=== PATIENT | male | born 2000 | race Caucasian/White ===

== ENCOUNTER 2023-06-02 07:22 | Emergency (ER) | payer OTHER, SELFPAY ==
[2023-06-02 07:24] VITALS: BP 120/79
[2023-06-02 07:25] VITALS: BMI 18.3
[2023-06-02] MEDS: ZOFRAN 4 MG IV (07:41)
[2023-06-02] MEDS: NSS 1000 IV (07:42)
[2023-06-02 07:51] LABS: % Basophils 0.4 % (0-2); % Immature Granulocytes 0.4 % (0-0.5); % Lymphocytes 8.3 % (20.5-51.1); % Monocytes 6.7 % (1.7-9.3); % Neutrophils 84.2 % (42.2-75.2); Absolute Lymphocytes 0.9 10^3/uL (1.2-3.4); Absolute Monocytes 0.7 10^3/uL (0.1-0.6); Absolute Neutrophils 8.7 10^3/uL (1.4-6.5); Hematocrit 36.8 % (39.0-52.0); Hemoglobin 13.6 g/dL (13.0-18.0); Mean Corpuscular Hgb 29.4 pg (27.0-31.0); Mean Corpuscular Volume 79.5 fL (80.0-94.0); Nucleated Red Blood Cells % 0 % (-); Platelet Count 264 10^3/uL (130-400); Red Blood Cell Count 4.63 10^6/uL (4.70-6.10); Red Cell Dist. Width 11.9 % (11.5-14.5); White Blood Cell Count 10.3 10^3/uL (4.8-10.8)
[2023-06-02 08:00] VITALS: BP 115/70
[2023-06-02 08:03] LABS: ALT (SGPT) 122 U/L (0-50); AST (SGOT) 46 U/L (17-59); Albumin 5.2 g/dl (3.5-5.0); Alkaline Phosphatase 66 U/L (38-126); Blood Urea Nitrogen 20 mg/dl (9-20); Carbon Dioxide 20 mmol/L (22-30); Chloride 104 mmol/L (98-107); Estimated Creatinine Clearance 116 ml/min; Glucose 102 mg/dl (70-99); Lipase 32 U/L (23-300); Potassium 3.7 mmol/L (3.5-5.1); Sodium 138 mmol/L (135-145); Total Bilirubin 1.6 mg/dl (0.2-1.3); Total Protein 7.9 g/dl (6.3-8.2); eGFR > 60.00
--- NOTE | 2023-06-02 08:18 | ED.GENMED ---
History of Present Illness
General
Chief Complaint: Abdominal Symptoms
Source: patient
Exam Limitations: none
Time Seen by Provider: 06/02/23 07:34
Nursing documentation reviewed up to this point in time: agreed with
History of Present Illness
History of Present Illness:
22-year-old male states at 3 AM he awakened with palpitations, he started vomiting and diarrhea which he has had 3 episodes of each, last emesis was an hour ago, last diarrhea was 1.5 hours ago (little squirts, non bloody). He admits to having a
history of panic attacks and anxiety and he typically takes Ativan when he feels this way but he is out of the Ativan he also states typically his anxiety attacks are associated with 1 episode of vomiting only and no diarrhea. He said he [place]
salad [place] 730 last night.
Denies fever/chills. Denies CP, SOB, Abdominal pain.
Past History
Past History
ED Past Medical History: Psychiatric (Takes Wellbutrin and Zoloft, Hydroxyzine, Ativan prn but ran out)
ED Past Surgical History: None
Social History
Tobacco: Non-smoker
Alcohol: None
Personal: Single
Living: with family
Employment: Employed (works on farm)
Review of Systems
Review of Systems
Allergies reviewed?: Yes
All Other Systems: ROS reviewed and negative except as documented in HPI and ROS
Constitutional: Denies fever or fatigue
Respiratory: Denies trouble breathing
Cardiac: Reports palpitations; Denies chest pain
ABD/GI: Denies abdominal pain, vomiting or diarrhea
Musculoskeletal: Reports no symptoms
Skin: Reports no symptoms
Neurological: Reports no symptoms
Psychiatric: Reports anxiety
Phy Exam
Physical Exam
Physical Exam:
GENERAL: No acute distress. A&Ox3.
CONSTITUTIONAL: Afebrile.
EYES:clear, conjunctivae normal
ENMT: moist mucus membranes, Pharynx nl
RESPIRATORY: Regular respirations, nonlabored, lungs clear.
CARDIOVASCULAR: Regular rate and rhythm, no murmurs, no rubs.
GI: Soft, nontender, normal BS
MUSCULOSKELETAL: Moves with ease. Well perfused.
SKIN: Warm, dry, pink
PSYCH: Normal mood and affect. Well kept, interactive and appropriate
NEUROLOGIC: Awake, alert and oriented. No focal neurological deficits
Course
Orders/Labs/Results
Orders:
Orders
06/02/23 07:23
Electrocardiogram (*1) Urgent
Reason for Study: Bradycardia / Tachycardia
06/02/23 07:24
EKG- Treatment ONCE
06/02/23 07:34
CMP [Comprehensive Metabolic Panel] Urgent
Complete Blood Count/With Diff Urgent
Lipase Urgent
Ondansetron Injectable [Zofran] 4 mg IV NOW STA
06/02/23 07:41
0.9% Sodium Chloride 1000 ml [Nss] 1,000 ml IV BOLUS
Abnormal Lab Results
06/02/23
07:34
RBC 4.63 L 10^6/uL
(4.70-6.10)
Hct 36.8 L %
(39.0-52.0)
MCV 79.5 L fL
(80.0-94.0)
Absolute Neuts (auto) 8.7 H 10^3/uL
(1.4-6.5)
Absolute Lymphs (auto) 0.9 L 10^3/uL
(1.2-3.4)
Absolute Monos (auto) 0.7 H 10^3/uL
(0.1-0.6)
Neutrophils % 84.2 H %
(42.2-75.2)
Lymphocytes % 8.3 L %
(20.5-51.1)
Carbon Dioxide 20 L mmol/L
(22-30)
Glucose 102 H mg/dl
(70-99)
Total Bilirubin 1.6 H mg/dl
(0.2-1.3)
ALT 122 H U/L
(0-50)
Albumin 5.2 H g/dl
(3.5-5.0)
06/02/23 07:34
06/02/23 07:34
Vital Signs
Initial and Last Documented VS:
Initial Vital Signs
Temp Pulse Resp BP Pulse Ox
98.3 F 112 20 120/79 98
06/02/23 07:24 06/02/23 07:24 06/02/23 07:24 06/02/23 07:24 06/02/23 07:24
Last Documented Vital Signs
Temp Pulse Resp BP Pulse Ox
98.3 F 88 20 107/60 98
06/02/23 07:24 06/02/23 09:45 06/02/23 07:24 06/02/23 09:54 06/02/23 09:54
MDM/Problems Addressed
Differential Diagnosis Includes:
Gastroenteritis, anxiety
MDM/Problems Addressed:
22-year-old male states at 3 AM he awakened with palpitations, he started vomiting and diarrhea which he has had 3 episodes of each, last emesis was an hour ago, last diarrhea was 1.5 hours ago (little squirts, non bloody). He admits to having a
history of panic attacks and anxiety and he typically takes Ativan when he feels this way but he is out of the Ativan he also states typically his anxiety attacks are associated with 1 episode of vomiting only and no diarrhea. He said he ate a
salad [place] a [place] 730 last night.
Denies fever/chills. Denies CP, SOB, Abdominal pain.
Afebrile, NAD
EKG: Sinus tachycardia
06/02/2023 0821 AM
CBC with no clinically significant abnormality
CMP mild respiratory alkalosis, pt was hyperventilating on arrival
06/02/2023 0858 AM
Patient with acute onset of nausea, vomiting, and diarrhea, no fever. Suspect self-limited viral syndrome such as norovirus.� Discussed supportive care and return parameters.� He has no reproducible abdominal tenderness thus there is no indication
for abdominal imaging at this time
After liter of IV fluids, IV Zofran patient states he is feeling much better. No vomiting or diarrhea since arrival
He is able to tolerate p.o. fluids
He states he is comfortable going home
Prescription for Zofran sent to his pharmacy
*Pulse Oximetry
Patient hypoxic: no
*EKG
EKG Intrepretation Date: 06/02/23
Interpretation: abnormal
Rate: tachycardiac
Rhythm: sinus
Interval: normal interval
QRS Pattern: normal QRS
Ischemia: no ischemia
*Critical Care Note
Total Time (30-74mins, 75-104mins- exclusive of procedures): Not Applicable
ED Attending Note
-
Portions of this chart may have been created with voice recognition software.� Occasional wrong word or��sound alike� substitutions may have occurred due to the inherent limitations of voice recognition software.
Discharge Plan
Departure
Patient Disposition: Home (Routine Discharge)
Date of Disposition: 06/02/23
Time of Disposition: 09:14
Patient with high blood pressure during this ER visit?: No
Condition: Good
Discharge Problem:
Gastroenteritis
Instructions: Diarrhea in adolescents and adults, Nausea and Vomiting, Adult (DC)
Prescriptions:
New
ondansetron 4 mg tablet,disintegrating
4 mg PO Q8H PRN (Reason: nausea and vomiting) 5 Days Qty: 10 0RF
No Action
No Current Medications
ondansetron 4 mg tablet,disintegrating
4 mg PO Q8H PRN (Reason: nausea and vomiting) 4 Days Qty: 10 0RF
Referrals:
Ankita Franco PA-C [Family Provider] - As needed
Activity Restrictions/Additional Instructions:
As we discussed, I sent a prescription to your pharmacy for Zofran to use as needed for nausea and vomiting.
Interventions
Interventions:
*Risk Screen - Suicide Last Done: 06/02/23 07:27
*General Assessment Last Done: 06/02/23 07:27
*Neglect/Abuse Screening Last Done: 06/02/23 10:10
ED- Fall Risk Assessment Last Done: 06/02/23 07:27
*ED COVID-19 Vaccine History Last Done: 06/02/23 07:27
*Nursing Disposition Last Done: 06/02/23 10:10
DJ-Fgboch-Lffdhpjhfi Assessment Last Done: 06/02/23 07:27
Discharge Date and Time
Discharge Date/Time: 06/02/23 10:10
[2023-06-02 09:00] VITALS: BP 108/68
[2023-06-02 09:54] VITALS: BP 107/60
== END 2023-06-02 10:10 | disposition home or self-care (01) ==
LOC: EMR 07:22
PROVIDERS: EMERGENCY PHYSICIAN Emergency Medicine; FAMILY PHYSICIAN Student in an Organized Health Care Education/Training Program; REFERRING PHYSICIAN Internal Medicine
DX: K52.9 Noninfective gastroenteritis and colitis, unspecified (principal)
CPT/HCPCS: 99284; 96374; 96361; 80053; 83690; 85025; 93005

== ENCOUNTER → 2023-08-07 09:00 | Outpatient (REF) | payer OTHER, SELFPAY | LOC: RCS 09:00 | PROVIDERS: ATTENDING PHYSICIAN Internal Medicine Cardiovascular Disease; FAMILY PHYSICIAN Student in an Organized Health Care Education/Training Program | DX: R00.2 Palpitations (principal); R06.02 Shortness of breath | CPT/HCPCS: 93306 ==

== ENCOUNTER 2024-06-14 06:39 | Emergency (ER) | payer OTHER, SELFPAY ==
[2024-06-14 06:49] VITALS: BP 123/84
--- NOTE | 2024-06-14 06:58 | ED.GENMED ---
History of Present Illness
General
Chief Complaint: Withdrawal Symptoms
Time Seen by Provider: 06/14/24 06:58
History of Present Illness
History of Present Illness:
TIME OF INITIAL ENCOUNTER: 7:10 AM
HPI: The patient has a history of anxiety/depression. He recently stopped Effexor and Wellbutrin. He also had been using marijuana daily up until 3 days ago. He spoke to his psychiatrist yesterday but was not honest with him about stopping the
Effexor and Wellbutrin. He has been having nausea, vomiting, and diarrhea and feels dehydrated. His psychiatrist switched him from Ativan to Xanax. He last took Xanax at 9 PM last night. He says he takes benzos about 4 times per month. He does
not necessarily feel jittery or anxious currently.
EXAM:
GENERAL: Well appearing in no distress, but appears somewhat generally weak
HEENT: Slightly dry oral mucosa
CARDIOVASCULAR: No murmurs, tachycardic heart rate, regular rhythm, No chest wall tenderness
PULMONARY: No respiratory distress, breath sounds are clear and equal
ABDOMEN: Soft with no peritoneal signs, no tenderness
NEUROLOGIC: Excellent strength all extremities, no coordination deficits
PSYCHIATRIC: Appropriate mental status, normal insight and judgement
EXTREMITIES: Nontender, no edema, moves all extremities equally
SKIN: No rash, no lesions
NUMBER AND COMPLEXITY OF PROBLEMS ADDRESSED AT THE ENCOUNTER
� Chronic conditions affecting care: Anxiety/depression
� Acute Exacerbation and/or Progression of Chronic Illness: This is an acute problem
� Differential Diagnosis includes: Medication withdrawal, anxiety, cannabinoid hyperemesis syndrome, medication side effect, dehydration, LETI
AMOUNT AND/OR COMPLEXITY OF DATA TO BE REVIEWED AND ANALYZED
� I performed an independent evaluation of and my interpretation is:
EKG: Sinus 98, rightward axis deviation, no acute ST abnormality
CT:
X-rays:
Laboratory Studies: White count and hemoglobin levels are normal, chemistries are unremarkable however the total bili is slightly elevated 1.9 with normal transaminases and alk phos. Lipase normal.
Other:
� Review of other/old records: I reviewed records, the patient was seen here 1 year ago diagnosed with gastroenteritis. The patient also had a colonoscopy that was unremarkable [place] [address] Mccrary
� Clinical information was obtained by an independent historian: I spoke to mother at bedside
� Prescriptions/Medications Considered but not given:
� Further testing considered but not performed:
RISK OF COMPLICATIONS AND/OR MORBIDITY OR MORTALITY OF PATIENT MANAGEMENT
� Social determinants of health affecting care: Lives at home
� Discussion with other providers:
� Escalation of care including admission/observation vs risk of discharge considered: The patient was tachycardic upon arrival and feels dehydrated. He was given IV fluids
ANY OTHER UPDATES:
9:10 AM: I reassessed patient. Lab work is relatively unremarkable. Heart rate is improving with IV fluids now around 100 down from the 120s however, when I was in the room, his heart rate did increase back to around 120. Will obtain EKG. He
continues to feel unwell. I suspect this is more of a medication related issue. He is to follow-up with his psychiatrist. Labs are reassuring; his total bili has been elevated in the past as well. Will give a dose of Ativan as I suspect a
component of anxiety.
9:35 AM: EKG shows a heart rate of 98.
11:10 AM: Overall patient feels somewhat improved but still feels anxious right now. We did give Ativan earlier. He is reaching out to his therapist and psychiatrist for close follow-up.
Past History
Past History
ED Past Medical History: Psychiatric (Takes Wellbutrin and Zoloft, Hydroxyzine, Ativan prn but ran out)
ED Past Surgical History: None
Social History
Tobacco: Non-smoker
Alcohol: None
Personal: Single
Living: with family
Employment: Employed (works on farm)
Phy Exam
Physical Exam
Physical Exam:
See HPI
Course
Orders/Labs/Results
Orders:
Orders
06/14/24 06:59
0.9% Sodium Chloride 1000 ml [Nss] 1,000 ml IV BOLUS
Ondansetron Injectable [Zofran] 4 mg IV NOW STA
06/14/24 07:22
0.9% Sodium Chloride 1000 ml [Nss] 1,000 ml IV BOLUS
06/14/24 07:36
Complete Blood Count/With Diff Urgent
Comprehensive Metabolic Panel Urgent
Lipase Urgent
06/14/24 09:15
Electrocardiogram (*1) Urgent
Reason for Study: Palpitations
EKG- Treatment ONCE
Lorazepam [Ativan] 1 mg IV NOW STA
Abnormal Lab Results
06/14/24
07:36
Hct 38.7 L %
(39.0-52.0)
Lymphocytes % 18.9 L %
(20.5-51.1)
Glucose 131 H mg/dl
(70-99)
Calcium 10.5 H mg/dl
(8.4-10.2)
Total Bilirubin 1.9 H mg/dl
(0.2-1.3)
Albumin 5.1 H g/dl
(3.5-5.0)
06/14/24 07:36
06/14/24 07:36
Vital Signs
Initial and Last Documented VS:
Initial Vital Signs
Temp Pulse Resp BP Pulse Ox
37.2 C 122 25 123/84 97
06/14/24 06:49 06/14/24 06:49 06/14/24 06:49 06/14/24 06:49 06/14/24 06:49
Last Documented Vital Signs
Temp Pulse Resp BP Pulse Ox
37.0 C 82 17 110/74 98
06/14/24 08:33 06/14/24 09:00 06/14/24 09:00 06/14/24 09:00 06/14/24 09:00
*Critical Care Note
Total Time (30-74mins, 75-104mins- exclusive of procedures): Not Applicable
ED Attending Note
-
Portions of this chart may have been created with voice recognition software.� Occasional wrong word or��sound alike� substitutions may have occurred due to the inherent limitations of voice recognition software.
Discharge Plan
Departure
Prescriptions:
No Action
No Current Medications
ondansetron 4 mg tablet,disintegrating
4 mg PO Q8H PRN (Reason: nausea and vomiting) 4 Days Qty: 10 0RF
ondansetron 4 mg tablet,disintegrating
4 mg PO Q8H PRN (Reason: nausea and vomiting) 5 Days Qty: 10 0RF
Referrals:
Ankita Franco PA-C [Family Provider] -
Interventions
Interventions:
*Risk Screen - Suicide Last Done: 06/14/24 06:49
*General Assessment Last Done: 06/14/24 06:49
*Neglect/Abuse Screening Last Done: 06/14/24 06:49
*ED- Fall Risk Assessment Last Done: 06/14/24 06:49
*ED COVID-19 Vaccine History Last Done: 06/14/24 06:49
ED- Neurological Assessment Last Done: 06/14/24 07:14
ED-Psychological Assessment Last Done: 06/14/24 07:14
Discharge Date and Time
Print Language: MALDIVIAN
[2024-06-14] MEDS: NSS 1000 IV ×2 (07:13→08:31)
[2024-06-14 07:14] VITALS: BMI 19.2
[2024-06-14] MEDS: ZOFRAN 4 MG IV (07:35)
[2024-06-14 07:52] LABS: % Basophils 0.5 % (0-2); % Eosinophils 0.2 % (0-6); % Immature Granulocytes 0.2 % (0-0.5); % Lymphocytes 18.9 % (20.5-51.1); % Monocytes 9.2 % (1.7-9.3); Absolute Lymphocytes 1.2 10^3/uL (1.2-3.4); Absolute Monocytes 0.6 10^3/uL (0.1-0.6); Absolute Neutrophils 4.5 10^3/uL (1.4-6.5); Hematocrit 38.7 % (39.0-52.0); Mean Corp Hgb Conc. 36.2 g/dL (33.0-37.0); Mean Corpuscular Hgb 29.7 pg (27.0-31.0); Mean Platelet Volume 9.6 fL (7.4-10.4); Nucleated Red Blood Cells % 0 % (-); Platelet Count 259 10^3/uL (130-400); Red Blood Cell Count 4.72 10^6/uL (4.70-6.10); White Blood Cell Count 6.3 10^3/uL (4.8-10.8)
[2024-06-14 08:11] LABS: ALT (SGPT) 14 U/L (0-50); AST (SGOT) 18 U/L (17-59); Albumin 5.1 g/dl (3.5-5.0); Alkaline Phosphatase 49 U/L (38-126); Blood Urea Nitrogen 13 mg/dl (9-20); Calcium 10.5 mg/dl (8.4-10.2); Carbon Dioxide 26 mmol/L (22-30); Chloride 101 mmol/L (98-107); Estimated Creatinine Clearance > 125 ml/min; Glucose 131 mg/dl (70-99); Lipase 41 U/L (23-300); Sodium 138 mmol/L (135-145); Total Bilirubin 1.9 mg/dl (0.2-1.3); Total Protein 7.9 g/dl (6.3-8.2); eGFR > 60.00
[2024-06-14 09:00] VITALS: BP 110/74
[2024-06-14] MEDS: ATIVAN 1 MG IV (09:26)
[2024-06-14 10:00] VITALS: BP 115/73
[2024-06-14 11:00] VITALS: BP 112/68
[2024-06-14 12:00] VITALS: BP 120/75
== END 2024-06-14 12:00 | disposition home or self-care (01) ==
LOC: EMR 06:39
PROVIDERS: EMERGENCY PHYSICIAN Emergency Medicine; FAMILY PHYSICIAN Student in an Organized Health Care Education/Training Program
DX: F41.8 Other specified anxiety disorders (principal)
CPT/HCPCS: 99283; 80053; 83690; 85025; 93005